=== PATIENT | female | born 1990 | race Two or more races ===

== ENCOUNTER 2024-09-30 13:42 | Emergency (ER) | payer MEDICAID, OTHER ==
[~2024-09-30] VITALS: Ht 157.5 cm; Wt 89.3 kg
[2024-09-30 13:45] VITALS: BP 130/85; PULSE 78; RESP 18; TEMP 98.1; O2SAT 96
[2024-09-30] MEDS: HYDROcodone-ACET 7.5/325MG TAB PO ONE (14:31)
[2024-09-30] MEDS: KETOROLAC TROMETH 60MG/2ML VIAL IM ONE (14:31)
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
--- NOTE | 2024-09-30 15:02 | DVH ---
EXAM: XY L KNEE 3V XRAY INDICATION: R/o fracture TECHNIQUE: 2 views of the left knee COMPARISON: None FINDINGS/IMPRESSION: No radiographic evidence of an acute osseous abnormality. There is no acute fracture, osseous malalig nment, or aggressive focal osseous lesion. There is no radiographically apparent joint space narrowin g.
--- NOTE | 2024-09-30 15:18 | DVH ---
EXAM: XY L FOOT 3 VIEW XRAY HISTORY: R/o fracture COMPARISON: None TECHNIQUE: Three views of the left foot were performed. FINDINGS/IMPRESSION: 1. Displaced oblique fracture of the metaphyseal base of the left 4th metatarsal bone. This may or ma y not be contiguous with a nondisplaced fracture line of the 4th metatarsal mid shaft. 2. No other fractures are identified about the left foot. 3. 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
[2024-09-30] MEDS ORDERED: IBUP1TAB5 PO (15:45)
[2024-09-30] MEDS ORDERED: MUPI2CRE17 EX (15:45)
== END 2024-09-30 16:01 | disposition home or self-care (01) ==
LOC: ER 13:42
DX: S92.342A Displaced fracture of fourth metatarsal bone, left foot, initial encounter for closed fracture (principal); S50.812A Abrasion of left forearm, initial encounter; S80.212A Abrasion, left knee, initial encounter; Z79.899 Other long term (current) drug therapy; Y93.39 Activity, other involving climbing, rappelling and jumping off; Y93.89 Activity, other specified; Y92.89 Other specified places as the place of occurrence of the external cause; Y99.8 Other external cause status
CPT/HCPCS: 73562; 73630; 96372; 99284; J1885

== ENCOUNTER 2024-10-03 09:27 | Emergency (ER) | payer MEDICAID ==
[~2024-10-03] VITALS: Ht 157.5 cm; Wt 91.0 kg
[~2024-10-03 09:27] MED LIST: IBUP1TAB5 PO; MUPI2CRE17 EX
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
[2024-10-03] MEDS ORDERED: IBUP-1456 PO (11:10)
[2024-10-03] MEDS ORDERED: CEPH500C PO (11:10)
[2024-10-03] MEDS: HYDROcodone-ACET 10/325MG TAB PO ONE (11:26)
[2024-10-03 11:27] VITALS: BP 149/77; PULSE 72; RESP 16; TEMP 98; O2SAT 96
== END 2024-10-03 11:51 | disposition home or self-care (01) ==
LOC: ER 09:27
DX: S92.322A Displaced fracture of second metatarsal bone, left foot, initial encounter for closed fracture (principal); S80.212A Abrasion, left knee, initial encounter; Z79.899 Other long term (current) drug therapy; Z79.1 Long term (current) use of non-steroidal anti-inflammatories (NSAID); X58.XXXA Exposure to other specified factors, initial encounter; Y93.89 Activity, other specified; Y92.89 Other specified places as the place of occurrence of the external cause; Y99.8 Other external cause status

== ENCOUNTER 2024-10-08 18:48 | Emergency (ER) | payer MEDICAID ==
[~2024-10-08] VITALS: Ht 157.5 cm; Wt 100.2 kg
[~2024-10-08 18:48] MED LIST changes: +CEPH500C PO; +IBUP-1456 PO
[2024-10-08] MEDS ORDERED: HYDR-4902 PO (20:25)
--- NOTE | 2024-10-08 20:26 | ED.PDOC ---
Musculoskeletal HPI Comments 33-year-old female presents to ER for pain management of left foot pain. Patient reports that she was diagnosed with a left foot fracture in ER here eight days ago and states that Tylenol and ibuprofen are not providing her any pain relief and is requesting a stronger pain medication ER today. Notes that she does have an appointment with [facility] orthopedics tomorrow at 2:00 p.m. She rates her current pain a 10/10 to left foot without radiation. Patient presents to ER with walking boot to left leg and crutches and does report swelling/bruising to left foot. Denies numbness/tingling, left ankle pain or any further symptoms/complaints Chief Complaint: Lower Extremity Time Seen by MD: 18:51 Primary Care Provider: UNKNOWN Reviewed Notes: Nurses Notes, Medications, Allergies Allergies: Coded Allergies: NO KNOWN ALLERGIES (Unverified , 09/30/24) Home Meds Active Scripts Hydrocodone-Acetaminophen (Hydrocodone Bitartrate/AC 5-325 mg) 1 Tab Tab, 1 TAB PO Q6HPRN, #10 TAB 0 Refills Prov:MINE SAMUEL 10/08/24 Cephalexin Monohydrate (Cephalexin) 500 Mg Cap, 1 CAP PO QID, #40 CAP Prov:CHAVEZ VALLECILLO 10/03/24 Ibuprofen (Ibuprofen) 800 Mg Tab, 1 TAB PO TID, #30 TAB Prov:CHAVEZ VALLECILLO 10/03/24 Mupirocin Calcium (Topical) (MUPIROCIN) 2 % Cre, 1 APPLIC EX BID for 5 Days, #30 GRAMS 0 Refills Prov:LYN LENNON NP 09/30/24 Ibuprofen Micronized (Ibuprofen) 600 Mg Tab, 600 MG PO Q8HP PRN for 10 Days, #30 TAB 0 Refills Prov:LYN LENNON NP 09/30/24 Information Source: Patient Mode of Arrival: Ambulatory Past Medical History PAST MEDICAL HISTORY: Denies Surgical History: Denies all surgeries HAT COPYIST History: No Pertinent HAT COPYIST History Family History Family History: Unknown Social History Smoker: Non-Smoker Alcohol: Denies ETOH Use Drugs: Denies Drug Use Lives In: Home Constitutional: denies: chills, diaphoresis, fatigue, fever, malaise, sweats, weakness, others EENTM: denies: blurred vision, double vision, ear bleeding, ear discharge, ear drainage, ear pain, ear ringing, eye pain, eye redness, hearing loss, mouth pain, mouth swelling, nasal discharge, nose bleeding, nose congestion, nose pain, photophobia, tearing, throat pain, throat swelling, voice changes, others Respiratory: denies: cough, hemoptysis, orthopnea, SOB at rest, shortness of breath, SOB with excertion, stridor, wheezing, others Cardiovascular: denies: chest pain, dizzy spells, diaphoresis, Dyspnea on exertion, edema, irregular heart beat, left arm pain, lightheadedness, palpitations, PND, syncope, others Gastrointestinal: denies: abdomen distended, abdominal pain, blood streaked bowels, constipated, diarrhea, dysphagia, difficulty swallowing, hematemesis, melena, nausea, poor appetite, poor fluid intake, rectal bleeding, rectal pain, vomiting, others Genitourinary: denies: abnormal vagina bleeding, burning, dyspareunia, dysuria, flank pain, frequency, hematuria, incontinence, pain, , vagina discharge, urgency, others Neurological: denies: dizziness, fainting, headache, left sided numbness, left sided weakness, numbness, paresthesia, pre-existing deficit, right sided numbness, right sided weakness, seizure, speech problems, tingling, tremors, weakness, others Musculoskeletal: reports: others (As stated in HPI) Integumetry: reports: others (As stated in HPI) Allergic/Immunocompromised: denies: Difficulty Healing, Frequent Infections, Hives, Itching, others Hematologic/Lymphatic: denies: anemia, blood clots, easy bleeding, easy bruising, swollen glands, others Endocrine: denies: excessive hunger, excessive sweating, excessive thirst, excessive urination, flushing, intolerance to cold, intolerance to heat, unexplained weight gain, unexplained weight loss, others Psychiatric: denies: anxiety, bipolar disorder, depression, hopeless, panic disorder, schizophrenia, sleepless, suicidal, others Physical Exam General Appearance: No Apparent Distress HEENT: PERRL/EOMI Neck: Full Range of Motion, Non-Tender, Normal Respiratory: Chest Non-Tender, Lungs Clear, No Accessory Muscle Use, No R espiratory Distress, Normal Breath Sounds Cardiovascular: No Murmur, No Gallop, Regular Rate/Rhythm Breast Exam: Deferred Gastrointestinal: NOT DONE Genitalia: Deferred Pelvic: Deferred Rectal: Deferred Extremities: No calf tenderness, Normal capillary refill, Normal range of motion Musculoskeletal : Extremity Location: Foot (TTP to left 4th metatarsal with moderate associated swelling/ecchymosis. No erythema noted. No TTP to left ankle noted. Patient able to move all toes of left foot. Pulses) Neurologic: Alert, No Motor Deficits, Normal Affect, Normal Mood, No Sensory Deficits Cerebellar Function: Normal Reflexes: Normal Skin: Dry, Warm Peripheral Pulses: 2+ dorsalis pedis (R), 2+ dorsalis pedis (L), 2+ Radial (R), 2+ Radial (L), 2+ Brachial (R), 2+ Brachial (L) Lymphatic: No Adenopathy Was a procedure done? Was a procedure done?: No Sedation Sedation?: No Differential Diagnosis EXT Differential Diagnosis: Dislocation, Laceration, Neurovascular injury X-Ray, Labs, Meds, VS Vital Signs Date Time Temp Pulse Resp B/P (MAP) Pulse Ox O2 Delivery O2 Flow Rate FiO2 10/08/24 18:49 99.1 77 18 167/69 99 99.1 Previous chart visits reviewed [place] 5/325 mg p.o. ordered Patient neurovascularly intact Advised on continued use of walking boot and crutches Advised on elevation and alternate ice on/off as needed for pain/swelling Patient does have an appointment with her orthopedic doctor tomorrow Advised to follow up with PCP in 1-2 days Patient verbalized understanding and agreeable with current plan of care Advised to return to ER immediately if symptoms worsen Time of 1ST Reevaluation: 20:02 Reevaluation 1ST: N/A Patient Education/Counseling: Diagnosis, Treatment, Prognosis, Need For Follow Up Family Education/Counseling: No Family Present Departure 1 Departure Time of Disposition: 20:22 Impression: Primary Impression: Fracture of metatarsal bone of left foot Qualified Codes: S92.342A - Displaced fracture of fourth metatarsal bone, left foot, initial encounter for closed fracture Disposition: 01 HOME / SELF CARE / HOMELESS Condition: Stable e-Prescriptions Hydrocodone-Acetaminophen (Hydrocodone Bitartrate/AC 5-325 mg) 1 Tab Tab 1 TAB PO Q6HPRN, #10 TAB 0 Refills Prov: MINE SAMUEL 10/08/24 Discharged With: Friend Critical Care Note Critical Care Time?: No Stability Stability form required: No Heart Score Heart Score: Heart Score Response (Comments) Value History N/A 0 EKG N/A 0 Age N/A 0 Risk Factors N/A 0 Troponin N/A 0 Total 0 MINE SAMUEL Oct 08, 2024 20:26
[2024-10-08] MEDS: HYDROcodone-ACET 5/325MG TAB PO ONE (20:52)
[2024-10-08 21:10] VITALS: BP 135/86; PULSE 63; RESP 18; TEMP 98.4; O2SAT 95
== END 2024-10-08 21:15 | disposition home or self-care (01) ==
LOC: ER 18:48
DX: S92.343A Displaced fracture of fourth metatarsal bone, unspecified foot, initial encounter for closed fracture (principal); X58.XXXA Exposure to other specified factors, initial encounter; Y93.89 Activity, other specified; Y92.89 Other specified places as the place of occurrence of the external cause; Y99.8 Other external cause status